=== PATIENT | female | born 1995 | race Caucasian/White ===

== ENCOUNTER 2019-07-07 15:30 | Emergency (ER) | payer MEDICAID ==
[2019-07-07 16:07] LABS: BILIRUBIN,URINE NEGATIVE (NEGATIVE); CLARITY,URINE CLEAR (CLEAR); GLUCOSE, URINE (UA) NEGATIVE (NEGATIVE); KETONES,URINE (UA) NEGATIVE (NEGATIVE); LEUKOCYTE ESTERASE, URINE NEGATIVE (NEGATIVE); NITRITE,URINE NEGATIVE (NEGATIVE); OCCULT BLOOD,URINE TRACE-INTA (NEGATIVE); PROTEIN,URINE NEGATIVE (NEGATIVE); UROBILINOGEN,URINE 0.2 (NORMAL) E.U./dL (NORMAL)
[2019-07-07 16:09] LABS: HCG UR QUAL NEGATIVE
[2019-07-07] MEDS ORDERED: cefTRIAXone 250 MG VIAL IM STA (16:13)
[2019-07-07] MEDS ORDERED: LIDOCAINE 1% 2 ML VIAL MC ONE (16:13)
[2019-07-07] MEDS ORDERED: AZITHROMYCIN 250 MG TABLET PO STA (16:13)
[2019-07-07] MEDS ORDERED: ONDANSETRON ODT 4 MG TABLET TL STA (16:14)
--- NOTE | 2019-07-07 16:17 | ED Physician Documentation ---
History of Present Illness - Stated complaint Stated Complaint: FEM - Chief complaint Chief Complaint: General - Additonal information Additional information: This is a 23-year-old female presents requesting treatment for chlamydia. She h as had symptoms of burning and urgency with urination for the last week, she had sexual transmitted infection testing which was positive for chlamydia but she is been unable to start antibiotics which are called into a pharmacy elsewhere. It is unclear if she had any empiric treatment at the time of testing. She denies abdominal pain, vomiting, no abnormal vaginal discharge. She has a IUD in place denies concern for and had negative recent testing in the last week. No genital lesions. Review of Systems Constitutional: denies: Fever GI: denies: Abdominal Pain : reports: Dysuria Skin: denies: Rash PD PAST MEDICAL HISTORY - Past Medical History Past Medical History: Yes Cardiovascular: Other Respiratory: None Neuro: None Endocrine/Autoimmune: None GI: None WRAP Y[place] SORTER: None : None HEENT: None Psych: None Musculoskeletal: None Derm: None Other Past Medical History: Sick Sinus syndrome - Past Surgical History Past Surgical History: Yes Cardiovascular: Pacemaker HEENT: Tonsil/Adenoidectomy - Allergies Allergies/Adverse Reactions: Allergies Allergy/AdvReac Type Severity Reaction Status Date / Time No Known Drug Allergies Allergy Verified 07/07/19 15:37 - Social History Does the pt smoke?: No Smoking Status: Never smoker Does the pt drink ETOH?: Yes Does the pt have substance abuse?: Yes Substance Use and Type: Marijuana - Immunizations Immunizations are current?: Yes - POLST Patient has POLST: No PD ED PE NORMAL - Vitals Vital signs reviewed: Yes - General General: Alert and oriented X 3, No acute distress - HEENT HEENT: PERRL - Neck Neck: Supple, no meningeal sign - Cardiac Cardiac: RRR - Respiratory Respiratory: No respiratory distress - Abdomen Abdomen: Soft, Non tender, Non distended - Derm Derm: Warm and dry - Extremities Extremities: No deformity - Neuro Neuro: Alert and oriented X 3 - Psych Psych: Normal mood, Normal affect Results - Vitals Vitals: Vital Signs - 24 hr 07/07/19 07/07/19 15:37 16:52 Temperature 36.8 C 36.1 C L Heart Rate 112 H 94 Respiratory 18 18 Rate Blood Pressure 126/68 126/74 O2 Saturation 97 98 Oxygen O2 Source Room air - Labs Labs: Laboratory Tests 07/07/19 07/07/19 15:51 15:51 Urine Color YELLOW Urine Clarity CLEAR Urine pH 6.0 Ur Specific [place] 1.025 Urine Protein NEGATIVE Urine Glucose (UA) NEGATIVE Urine Ketones NEGATIVE Urine Occult Blood TRACE-INTA Urine Nitrite NEGATIVE Urine Bilirubin NEGATIVE Urine Urobilinogen 0.2 (NORMAL) Ur Leukocyte Esterase NEGATIVE Ur Microscopic Review NOT INDICATED Urine Culture Comments NOT INDICATED Urine HCG, Qual NEGATIVE Chlam trachomat DNA PCR NEGATIVE N.gonorrhoeae DNA (PCR) NEGATIVE T. vaginalis (PCR) NEGATIVE PD MEDICAL DECISION MAKING - ED course ED course: Pt presents with a recent history of positive chlamydia testing. After discussion dhe would like HIV and syphilis testing as well, though she is fairly low risk for these. She has no abnormal discharge, abdominal pain, fever, signs of TOA or PID or other more serious infection at this time. Abdomen is non- tender. Her Urine is negative for infection. We gave empiric treatment with azithromycin and ceftriaxone, I discussed PCP follow up, return precautions, and safe sex practices, and she was discharged home. Departure - Departure Disposition: 01 Home, Self Care Clinical Impression: Sexually transmitted infection Condition: Good Instructions: ED Chlamydia Female Follow-Up: YAMEL MACHUCA ARNP [Primary Care Provider] - Comments: You were treated today for gonorrhea and chlamydia, we have also drawn labs to check for other Sexually transmitted infections. You will be called if the results of these tests are positive. Do not have sex with any new partners until your symptoms are completely resolved. If you are having any abdominal pain fever or other concerning symptoms return to the emergency department. Otherwise please follow-up with your primary care provider. Discharge Date/Time: 07/07/19 16:55
[2019-07-07 16:55] VITALS: BP 126/74
[2019-07-07 21:34] LABS: TRICHOMONAS VAGINALIS DNA NEGATIVE (NEGATIVE)
[2019-07-08 14:46] LABS: HIV AG/AB 4TH GEN NON-REACTIVE (NON-REACTIVE)
== END 2019-07-07 16:55 | disposition home or self-care (01) ==
LOC: ED 15:30
DX: A56.2 Chlamydial infection of genitourinary tract, unspecified (principal); Z97.5 Presence of (intrauterine) contraceptive device
CPT/HCPCS: 81003; 81025; 86780; 87389; 87491; 87591; 87661; 96372; 99283; A9270; Q0162; 81001; 87086